=== PATIENT | female | born 2000 | race Caucasian/White ===

== ENCOUNTER 2019-03-21 22:46 | Emergency (ER) | payer OTHER ==
[2019-03-22] MEDS ORDERED: OXYCODONE-ACETAMINOPHEN 5-325 MG TABLET PO ONE (00:14)
[2019-03-22] MEDS ORDERED: ONDANSETRON 4 MG TAB.RAPDIS PO ONE (00:14)
--- NOTE | 2019-03-22 00:23 | ER Document Report ---
HPI - HPI Time Seen by Provider: 03/22/19 00:10 Pain Level: 5 Context: Patient is a 18-year-old female presents emergency department with a chief complaint of foot burn. Patient reports around 10 PM tonight she was wearing socks and slip on rubber shoes while at work when boiling water landed on her foot. She reports this did contact and burn the left inner foot as the water went into the left insole. Patient reports she has not had anything for pain. Patient reports her tetanus shot is up-to-date. Patient denies a history of medical problems or medication she takes on a daily basis. - REPRODUCTIVE Reproductive: DENIES: : Past Medical History - General Information source: Patient - Social History Smoking Status: Never Smoker Lives with: Family, Spouse/Significant other Family History: None Patient has suicidal ideation: No Patient has homicidal ideation: No - Past Medical History Cardiac Medical History: Reports: None Pulmonary Medical History: Reports: None EENT Medical History: Reports: None Neurological Medical History: Reports: None Endocrine Medical History: Reports: None Renal/ Medical History: Reports: None Malignancy Medical History: Reports: None GI Medical History: Reports: None Musculoskeletal Medical History: Reports None Skin Medical History: Reports None Psychiatric Medical History: Reports: None Traumatic Medical History: Reports: None Infectious Medical History: Reports: None Surgical Hx: Negative Vertical Provider Document - CONSTITUTIONAL Agree With Documented VS: Yes Exam Limitations: No Limitations General Appearance: No Apparent Distress - INFECTION CONTROL TRAVEL OUTSIDE OF THE [place] IN LAST 30 DAYS: No - HEENT HEENT: Atraumatic, Normal ENT Exam, Normocephalic, PERRLA - NECK Neck: Normal Inspection - RESPIRATORY Respiratory: Breath Sounds Normal, No Respiratory Distress - CARDIOVASCULAR Cardiovascular: Regular Rate, Regular Rhythm - GI/ABDOMEN Gastrointestinal: Abdomen Soft, Abdomen Non-Tender, Normal Bowel Sounds - BACK Back: Normal Inspection - MUSCULOSKELETAL/EXTREMETIES Musculoskeletal/Extremeties: FROM - NEURO Level of Consciousness: Awake, Alert, Appropriate - DERM Notes: Patient has a 4 x 4 centimeter area of erythema with small blisters to the right inner foot and in sole. Course - Re-evaluation Re-evalutation: 03/22/19 00:20 Patient has a 4 x 4 centimeter area to the left inner foot, small blistering noted. We have cleansed the wound and applied bacitracin and a nonstick dressing. Patient to clean the wound clean and dry. Patient instructed to follow-up with her primary care physician for a recheck or return to the emergency department if there is any signs of infection. Patient was told not to pop the blisters. Patient's tetanus shot is up-to-date. < 1.5% burn per the rule of 9's to the left foot. - Vital Signs Vital signs: Temp Pulse Resp BP Pulse Ox 98.6 F 115 H 16 141/86 H 100 03/21/19 23:13 03/21/19 23:13 03/21/19 23:13 03/21/19 23:13 03/21/19 23:13 Discharge - Discharge Clinical Impression: Second degree burn of right foot Qualifiers: Encounter type: initial encounter Qualified Code(s): T25.221A - Burn of second degree of right foot, initial encounter Condition: Stable Disposition: HOME, SELF-CARE Additional Instructions: *Today you are seen in the emergency department for left foot burn. Does appear that you have a first-degree burn to the left inner foot. Do not pop the blisters. Please keep this clean and dry. Please apply bacitracin or Neosporin to the area. Please use no nonstick dressing which can all help avoid popping the blisters. Do expect some pain over the next few days. Please monitor for signs of infection to include swelling, redness, increased tenderness, red streaking up the leg -if you do experiencing the symptoms please return to the emergency department immediately. Take Tylenol and ibuprofen as needed for pain or fever. Hines The seriousness of a burn is not always obvious at first. Delayed tissue damage and secondary infection may occur despite proper treatment. Proper care is very important. A burn that is third-degree may need skin grafting. Most hines, however, are simply protected with dressings until healed. Keep the burn clean. If the dressing gets wet, remove it and blot the wound dry, then apply a fresh dressing. Dressings should be changed at least once daily. Soaks to remove crusting are usually started in about two days. Hines in certain areas require stretching to prevent disabling tightness. Your doctor will advise you about this. For pain control, you may frequently apply a hand towel that has been dipped in water with ice cubes. Do not apply ice directly to the burned areas. If any signs of infection occur (swelling, redness, increasing tenderness, red streaks, tender lumps in the armpit or groin above the burn, or fever), contact the doctor immediately. Forms: Return to Work Referrals: HARRIS INIGUEZ NP [NURSE PRACTITIONER] - Follow up as needed
[2019-03-22 01:16] VITALS: BP 122/68
== END 2019-03-22 01:14 | disposition home or self-care (01) ==
LOC: ER 22:46
DX: T25.222A Burn of second degree of left foot, initial encounter (principal); T25.221A Burn of second degree of right foot, initial encounter; X12.XXXA Contact with other hot fluids, initial encounter; Y99.0 Civilian activity done for income or pay
CPT/HCPCS: 99283; S0119